=== PATIENT | male | born 2000 | race Caucasian/White ===

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

== ENCOUNTER 2021-10-12 12:31 | Outpatient (CLI) | payer MEDICAID, SELFPAY ==
[2018-06-24 16:38] VITALS: O2SAT 93
--- NOTE | 2021-10-12 13:50 | DI.RAD_ITS ---
Exam(s) XR FINGER LT LITTLE EXAM: XR FINGER LT LITTLE CLINICAL HISTORY: Left finger injury x1 week, significant swelling s69.92xa. TECHNIQUE: 2D digital imaging was performed. COMPARISON: None. FINDINGS: BONES: Intra-articular fracture at the distal aspect of the proximal phalanx of the little finger. T here is few millimeters of separation at the articular surface and mild displacement of the distal fr actured fragment. No additional fractures.. No bony destructive lesion is seen. JOINTS: No dislocation present. SOFT TISSUE: Normal. IMPRESSION: Intra-articular fracture of the proximal phalanx of the 5th finger... DATA REPOSITORY: RADIATION DOSE DELIVERED:
== END 2021-10-12 12:51 ==
PROVIDERS: PCP Pediatrics; Visit Provider Student in an Organized Health Care Education/Training Program
DX: S69.82XA Other specified injuries of left wrist, hand and finger(s), initial encounter (principal); S62.617A Displaced fracture of proximal phalanx of left little finger, initial encounter for closed fracture; X58.XXXA Exposure to other specified factors, initial encounter
CPT/HCPCS: 73140

== ENCOUNTER 2021-10-13 08:31 | Outpatient (CLI) | payer MEDICAID, SELFPAY ==
[2018-06-24 16:38] VITALS: O2SAT 93
[2021-10-13 10:22] LABS: Source Nasal/Nares
[2021-10-13 11:35] LABS: COVID-19 PCR Negative (Negative)
== END 2021-10-13 08:32 | disposition home or self-care (01) ==
PROVIDERS: PCP Pediatrics; Visit Provider Student in an Organized Health Care Education/Training Program
DX: Z20.822 Contact with and (suspected) exposure to COVID-19 (principal); Z01.818 Encounter for other preprocedural examination
CPT/HCPCS: 87635

== ENCOUNTER 2021-10-14 10:57 | Day surgery (SDC) | payer MEDICAID, SELFPAY ==
[2018-06-24 16:38] VITALS: O2SAT 93
[2021-10-14] VITALS (9 sets, daily range): BP systolic 107–150; BP diastolic 40–91; PULSE 47–68; RESP 13–23; TEMP 36.2–37.1; O2SAT 60–100
--- NOTE | 2021-10-14 09:49 | PDOC.DSDIS_ITS ---
Discharge Plan Disposition Patient Disposition: HOME Condition: Good Discharge Details Reason For Visit: Left little finger proximal phalanx fracture Attending Provider: Melchor Velasquez Primary Care Provider: Johnnie Ross Home Meds and New Rx's Prescriptions: New acetaminophen 500 mg tablet 500 mg PO Q6H PRN (Reason: pain) Qty: 60 RF: 2 ibuprofen 600 mg tablet 600 mg PO TID PRN (Reason: pain) Qty: 60 RF: 0 hydrocodone-acetaminophen 5-325 mg tablet 1 tab PO Q6H PRN (Reason: severe pain) Qty: 6 RF: 0 Continued loratadine 10 MG tablet,disintegrating 10 mg PO DAILY Qty: 30 RF: 2 Discharge Instructions Additional Instructions: Finger Fracture Discharge Instructions Activity: You should keep the hand/wrist elevated as much as possible for the first few days. You may use the other fingers as tolerated but avoid trying to do too much too soon. You may perform light activities with the splint in place. Dressing/Cast: Your splint should stay in place at all times. Do NOT get it wet. You may loosen the WILLIS wrap if you feel it is too tight and then re-wrap more loosely. Medications: - You should take Tylenol and Ibuprofen for baseline pain control. - You have been prescribed a stronger pain medication, Hydrocodone, for breakthrough pain. - You may apply ice over the wrist, just double bag so it doesn't get wet. Follow-up: 10-14 days Referrals: Melchor Velasquez MD [ [facility] STAFF PHYSICIAN] - Equipment/Supplies: Splint Activity:: Elevate Remove Dressings/Wound Care:: Do Not Remove Shower/Bathe:: Cover Diet:: As Tolerated Discharge Orders Discharge Orders: Discharge Order (Routine); Ordered 10/14/21 Ordered By: Ana Peraza DS: Diagnosis Discharge Diagnosis (1) Displaced fracture of proximal phalanx of left little finger: Status: Acute
--- NOTE | 2021-10-14 11:42 | W.ANESPRE ---
General Info Date of Service Date Performed: 10/14/21 Height: 6 ft 4 in Weight: 74.7 kg Body Mass Index (BMI): 20.0 Surgical Procedure: Operation Date: 10/14/21 14:10 Proposed Procedures Side Surgeon p ORIF Finger Closed vs Open LLF Proximal Phalanx Fx Left Melchor Velasquez MD Meds Allergies and Home Medications Allergies Allergy/AdvReac Type Severity Reaction Status Date / Time No Known Allergies Allergy Verified 10/14/21 11:08 Home Medication Medication Instructions Recorded loratadine 10 mg PO DAILY #30 tab-cap 10/02/14 acetaminophen 500 mg PO Q6H PRN #60 tab 10/14/21 ibuprofen 600 mg PO TID PRN #60 tab 10/14/21 Current Visit Medications: Current Medications Generic Name Dose Route Start Last Admin Trade Name Freq PRN Reason Stop Dose Admin Acetaminophen 650 mg 10/14/21 09:48 Acetaminophen 325 Mg Tab PO Q4H PRN PRN Hydrocodone Bitart/Acetaminophen 0 tab 10/14/21 09:48 Hydrocodone 5/Acetaminophen 325 Tab PO Q3H PRN PRN Pain Ringer's Solution 1,000 mls @ 80 mls/hr 10/14/21 06:00 IV 11/12/21 23:59 INFUSION IVIS Cefazolin Sodium/Dextrose 2 gm in 50 mls @ 100 mls/hr 10/14/21 06:00 Ancef Duplex IVPB 10/14/21 16:00 PREOP IVIS IV Miscellaneous Supplies 1 each 10/14/21 06:00 Iv Access IV 11/12/21 23:59 DIRECTED IVIS Sodium Chloride 0 ml 10/14/21 06:00 Normal Saline Flush 10 Ml Syr IV 11/12/21 23:59 PRN PRN Sodium Chloride 0 ml 10/14/21 06:00 Normal Saline 10 Ml Vial IJ 11/12/21 23:59 DIRECTED PRN Sterile Water 0 ml 10/14/21 06:00 Water,Injection,Sterile 10 Ml Vial IJ 11/12/21 23:59 DIRECTED PRN PFSH Active Problems Active Problems: Problem Status Onset Code Displaced fracture of proximal phalanx of left little finger S62.617A Finger injury S69.90XA Chronic allergic rhinitis J30.9 Closed fracture of nasal bone S02.2XXA Routine child health exam 10/04/13 Z00.129 Normal weight, pediatric, BMI 5th to 84th percentile for age 1210/02/14 Z68.52 Heart murmur 07/20/12 R01.1 Allergic rhinitis 07/27/13 J30.9 Medical History Medical History RSV (respiratory syncytial virus infection) hospitalized at 10 days old Surgical History Surgical History Circumcision Tobacco Smoking/Tobacco Use Status: Never Second hand exposure: No Alcohol Alcohol Intake: current Alcohol intake frequency: a few times a week Alcohol type: beer Substance Use Substance use: Never Substance use type: does not use Details: Mom states she is note sure Vital Signs and Lab Results Vital Signs Most Recent Vital Signs in EMR: Most Recent Vital Signs Temp Pulse Resp BP Pulse Ox 37.1 C 59 L 16 115/69 98 10/14/21 10:59 10/14/21 10:59 10/14/21 10:59 10/14/21 10:59 10/14/21 10:59 Lab Results Blood Type / Crossmatch: No Data to Display Complete Blood Count: No Data to Display Complete Metabolic Panel: No Data to Display Liver Function Panel: No Data to Display Coagulation Panel: No Data to Display Cardiac Panel: No Data to Display Arterial Blood Gas: No Data to Display Venous Blood Gas: No Data to Display Pancreas Panel: No Data to Display Thyroid Panel: No Data to Display Infectious Disease: Coronavirus (COVID-19)(PCR) Negative (Negative) 10/13/21 09:46 10/13/21 Coronavirus 2019 Source Nasal/Nares 10/13/21 09:46 10/13/21 Blood Cultures: No Data to Display Toxicology Panel: No Data to Display Anesthesia Assessment and Plan Anesthesia History Personal History: No History of Anesthesia Complications Family History: No Family History of Anesthesia Complications Exercise Tolerance Exercise Tolerance: Metabolic Equivalents>4 Pertinent Negatives Pertinent Negatives: No Symptoms of GERD, No Major Cardiovascular Symptoms or Complaints and No Major Pulmonary Symptoms or Complaints Cardiac & Pulmonary Exam Cardiac Exam: Normal S1/S2 Heart Sounds Pulmonary Exam: Clear Bilateral Breath Sounds Implantable Cardiac Device Does patient have a Pacemaker or an ICD?: No Airway Exam Known Difficult Airway: No Mallampati Class: 1 Mouth Opening: Normal (> 3cm) Thyromental Distance: Greater than 3 cm Neck Range of Motion: Full ROM Neck Circumference: Normal Teeth Condition: Normal Dentition ASA Classification ASA Score: ASA 2 Emergency Case?: No NPO Status NPO Status: NPO Clears >2 hours, Solids >8 hours Anesthesia Plan Resuscitation Status: Full Code Anesthesia Technique: General Anesthesia Airway Planned: LMA Pain Management: Surgeon and patient request nerve block Monitors Used: Standard Monitors
[2021-10-14] MEDS: Lactated Ringers 1,000 ML 80 ML IV (11:59)
--- NOTE | 2021-10-14 12:00 | DI.RAD_ITS ---
Exam(s) XR HAND LT LIMITED EXAM: XR HAND LT LIMITED CLINICAL HISTORY: IA fx of the proximal phalanx of L little finger TECHNIQUE: 2D and realtime digital imaging was performed. CONTRAST MATERIAL: Refer to procedure report. COMPARISON: CR XR FINGER LT LITTLE from 10/12/2021 CR XR FINGER LT LITTLE from 10/12/2021 FINDINGS: Fluoroscopy was provided for Dr. Velasquez during the performance of a percutaneous pinning of the fr acture involving the proximal phalanx of the left 5th finger.. Please refer to the procedure report for complete details. Ka,r=0.17 mGy IMPRESSION: RADIATION DOSE DELIVERED:
--- NOTE | 2021-10-14 12:16 | W.PM.HP.N ---
Assessment and Plan Assessment and plan (1) Displaced fracture of proximal phalanx of left little finger: Status: Acute Assessment and plan: Plan: Raffi is a 20-year-old male who presents to hospital for surgery regarding his left little finger proximal phalanx fracture. Educated patient on surgery covering surgical technique, recovery process, benefits and risks including but not limited to risk of infection, blood clot, damage to soft tissue/blood vessels/nerves in detail. After discussion patient gives verbal understanding of risks and elects to proceed with scheduling surgery. Patient had opportunity to have questions answered to their satisfaction. They will contact office if issues arise. Patient will continue to be scheduled for closed reduction vs. ORIF of left little finger proximal phalanx fracture with Dr. Velasquez. History of Present Illness Narrative: Raffi is a 20-year-old male who presents to hospital for surgery regarding left little finger proximal phalanx fracture. Reports he jammed his hand over a week ago. He suffered swelling and bruising over the area. When he continued to have pain along the area he mentioned to his PCP while at an appointment for chronic cough. X-rays were ordered revealing fracture and PCP discussed case with Dr. Velasquez via phone. Based on alignment Dr. Velasquez recommended surgical intervention and patient agreed. Review of Systems Cardiovascular Cardiovascular: Denies chest pain, Denies dyspnea and Denies dyspnea on exertion Respiratory Respiratory: Denies dyspnea and Denies dyspnea on exertion PFSH All Active Problems Displaced fracture of proximal phalanx of left little finger (Acute) Finger injury (Acute) Chronic allergic rhinitis (Acute) Closed fracture of nasal bone (Acute) Routine child health exam (Acute 07/27/13) Normal weight, pediatric, BMI 5th to 84th percentile for age (Acute 10/02/14) Heart murmur (Acute 07/20/12) innocent Allergic rhinitis (Acute 07/27/13) Medical History RSV (respiratory syncytial virus infection) hospitalized at 10 days old Surgical History Circumcision Family History Mother Healthy adult Father Healthy adult Other Diabetes paternal Asthma mat uncle Social History Smoking/Tobacco Use Status: Never Second Hand Exposure: No Smoking risk assessment performed?: Yes Alcohol Intake: current Alcohol Intake frequency: a few times a week Alcohol type: beer Drug use: Never Substance use type: does not use Details: Mom states she is note sure Household members: family Education Level: high school Details: Senior--[employer] Pets and animals: Yes Pets and animals: cat(s) and dog(s) Seatbelt use: always Working smoke detector in home: Yes Fire extinguisher in home: Yes Carbon monox detector in home: No Firearms in home: No Do you feel safe at home: Yes Additional Social history: unable to assess [employer] Meds Allergies and Home Medications Allergies Allergy/AdvReac Type Severity Reaction Status Date / Time No Known Allergies Allergy Verified 10/14/21 11:08 Home Medications Medication Instructions Recorded Confirmed Type loratadine 10 mg PO DAILY #30 tab-cap 10/02/14 10/14/21 History acetaminophen 500 mg PO Q6H PRN #60 tab 10/14/21 Rx ibuprofen 600 mg PO TID PRN #60 tab 10/14/21 Rx Exam Const General: cooperative and comfortable Resp Effort & Inspection: normal respiratory effort and able to speak in complete sentences Auscultation: clear to auscultation bilaterally, no rales, no rhonchi and no wheezes Cardio Heart Sounds: S1 normal and S2 normal Results Last Vital Signs Temp 37.1 C 10/14/21 10:59 Pulse 59 L 10/14/21 10:59 Resp 16 10/14/21 10:59 BP 115/69 10/14/21 10:59 Pulse Ox 98 10/14/21 10:59
[2021-10-14] MEDS: ceFAZolin 2 GM/50 ML BAG IVPB (13:27)
--- NOTE | 2021-10-14 15:01 | W.ANESPOSTOP ---
Postoperative Evaluation Date, Time and Location Date Performed: 10/14/21 Time Performed: 15:01 Patient Location: PACU Vital Signs Most Recent Imported Vital Signs: Most Recent Vital Signs Temp Pulse Resp BP Pulse Ox 36.9 C 60 13 124/84 100 10/14/21 14:45 10/14/21 14:45 10/14/21 14:45 10/14/21 14:45 10/14/21 14:45 Pain Score Most Recent Pain Score: Most Recent Pain Score Pain Level 0 10/14/21 14:45 Assessment Mental Status: Awake (Alert & Oriented to Patient Baseline) Airway and Respiratory Function: Patent airway with normal (patient baseline) respiratory exam Cardiovascular Function: Hemodynamically Stable Hydration Status: Adequately Hydrated Nausea & Vomiting: No Nausea or Vomiting Pain: Pt. Denies Any Pain Peripheral Nerve Block: Patient did not receive a nerve block Postoperative Comments:: Discussed sore throat from LMA and can use ice chips or lozenges as needed.
--- NOTE | 2021-10-14 21:45 | W.PM.OP ---
Date of service: 10/14/21 Time of Service: 14:52 Operative Note Operative Note DATE OF PROCEDURE: 10/14/21 PRE-OP DIAGNOSIS: Displaced intra-articular fracture of the proximal phalangeal head, left little finger POST-OP DIAGNOSIS: same PROCEDURE: Closed reduction and percutaneous pinning of left little finger proximal phalanx fracture SURGEON: Melchor Velasquez ANESTHESIA TYPE: General LMA/ETT Refer to Anesthesia Record ESTIMATED BLOOD LOSS: 0 PATHOLOGY: none sent TOURNIQUET TIME: 0 COMPLICATIONS: None Patient was transported to: PACU Patient's condition: stable Indications: Raffi is a 20-year-old who injured his left little finger in basketball about 10 days ago. He had initial swelling. He later developed some bruising and had difficulty with mobilizing the left little finger. He saw the office technology professor who ordered an x-ray and demonstrated a displaced intra-articular fracture of the proximal phalanx of the left little finger. I had a long discussion with him about treatment options and given the displaced nature of this fracture and his potential for causing arthritis and for limiting function currently, I recommended operative stabilization. Given the timing of this injury an open procedure may be necessary which she was prepared for. I attempt would be for close reduction cutaneous pinning. I reviewed the risk of the procedure to include bleeding, infection, pain, stiffness, damage to nerves and vessels, pin site irritation, hardware irritation, need for repeat procedures. Findings: With some extra manipulation is able to mobilize the fracture fragment and reduce it with an ulnarly directed stress and flexion of the PIP joint. This was secured with 2 K wires. Procedure Description: Raffi was greeted in the preoperative holding area. His identity was confirmed the correct site was identified and marked. The consent was reviewed the patient and signed. He was taken back to the operating room placed in supine position with all bony prominences well-padded. The left hand space on the hand table. Left hand was prepped ChloraPrep standard fashion. A timeout was for for safe surgery. I attempted mobilization of the fracture fragment by applying both a ulnar and radially directed stress across the PIP joint. Through some of this maneuvering I was able to feel a pop and was able to mobilize his fracture fragment. To improve the palmar translation of the fracture fragment and then flex the PIP joint and perform an ulnar directed stress which seem to tighten up the collateral ligaments and reduce the fracture fragment. In this position I then placed a single 0.045 inch K wire. This seemed to secure the fracture fragment. I also placed a single clamp on this area to hold it. The reduction maneuver was removed and the fracture fragment appear to be stable through range of motion. I placed a second 0.035 inch K wire right below the joint surface for secondary stabilization. These K wires were taken to the contralateral cortex but not left long. The clamp was removed and x-ray was once again utilized to confirm that the fracture fragment was stable. The K wires were cut at the level of the skin. The area was injected with 1% lidocaine. I dressed the area with some Xeroform and some gauze and he was placed into a ulnar gutter splint. There were no complications. He was transferred to the PACU in stable condition. He will return in 1 week for repeat x-rays and splint change
== END 2021-10-14 16:05 | disposition home or self-care (01) ==
LOC: SUR 10:58
PROVIDERS: PCP Pediatrics; Visit Provider Student in an Organized Health Care Education/Training Program
PROC: (CPT 26742; principal; 2021-10-14 14:00)
DX: S62.617A Displaced fracture of proximal phalanx of left little finger, initial encounter for closed fracture (principal); W23.0XXA Caught, crushed, jammed, or pinched between moving objects, initial encounter; J30.9 Allergic rhinitis, unspecified
CPT/HCPCS: 26742; 73120; J0690; J1100; J1885; J2250; J2405

== ENCOUNTER 2021-10-28 12:04 | Outpatient (CLI) | payer MEDICAID, SELFPAY ==
[2018-06-24 16:38] VITALS: O2SAT 93
--- NOTE | 2021-10-28 11:15 | DI.RAD_ITS ---
Exam(s) XR FINGER LT LITTLE EXAM: XR FINGER LT LITTLE CLINICAL HISTORY: s/p ORIF LLF TECHNIQUE: COMPARISON: CR XR FINGER LT LITTLE from 10/12/2021 RF XR HAND LT LIMITED from 10/14/2021 RF XR HAND LT LIMITED from 10/14/2021 FINDINGS: Three views were obtained. There are 2 fixation pins transfixing fracture of the distal aspect of th e proximal phalanx of the little finger. There is mild displacement at the fracture site which exten ds through the distal articular surface. Comparison with intraoperative films of October 14 is inconclusive regarding any change in alignme nt since that time due to differences in projection and limited image quality on the original RF imag es. IMPRESSION: RADIATION DOSE DELIVERED: Total DLP
== END 2021-10-28 12:05 | disposition home or self-care (01) ==
LOC: DIORS 12:04
PROVIDERS: PCP Pediatrics; Referring Provider Pediatrics; Visit Provider Physician Assistant Surgical
DX: S62.617D Displaced fracture of proximal phalanx of left little finger, subsequent encounter for fracture with routine healing (principal); Y93.67 Activity, basketball
CPT/HCPCS: 73140

== ENCOUNTER 2021-11-24 10:56 | Outpatient (CLI) | payer MEDICAID, SELFPAY ==
[2018-06-24 16:38] VITALS: O2SAT 93
--- NOTE | 2021-11-24 10:30 | DI.RAD_ITS ---
Exam(s) XR FINGER LT LITTLE EXAM: XR FINGER LT LITTLE EXAM DATE/TIME: CLINICAL HISTORY: f/u pinning of LLF prox phalanx frx. TECHNIQUE: 2D digital imaging was performed of the left finger. Two views were obtained. PA/AP and lateral views were obtained. COMPARISON: Priors available for comparison. FINDINGS: BONES: There again seen 2 pins transfixing the fracture involving the distal aspect of the proximal p halanx. The fracture line is less well visualized consistent with interval healing. No new fracture or dislocation is present. No bony destructive lesion is seen. JOINTS: No dislocation is present. SOFT TISSUE: Normal. IMPRESSION: DATA REPOSITORY: RADIATION DOSE DELIVERED:
== END 2021-11-24 10:57 | disposition home or self-care (01) ==
LOC: DIORS 10:56
PROVIDERS: PCP Nurse Practitioner Family; Referring Provider Nurse Practitioner Family; Visit Provider Student in an Organized Health Care Education/Training Program
DX: S62.617D Displaced fracture of proximal phalanx of left little finger, subsequent encounter for fracture with routine healing (principal); Y93.67 Activity, basketball; X58.XXXA Exposure to other specified factors, initial encounter
CPT/HCPCS: 73140